=== PATIENT | female | born 1995 | race Caucasian/White ===

== ENCOUNTER 2017-06-04 10:52 | Emergency (ER) | payer BC, OTHER ==
[2017-06-04 11:06] VITALS: BP 128/83; PULSE 65; TEMP 98.6; BMI 23.1
--- NOTE | 2017-06-04 11:23 | PDOC ---
History of Present Illness - General Chief Complaint: Allergic Reaction Stated Complaint: MULTIPLE INSECT BITES TO RIGHT FOOT AND ANKLE Time Seen by Provider: 06/04/17 11:07 - History of Present Illness Initial Comments: 06/04/17 12:08 Complaint: Insect bites History of present illness: Patient was hiking in the [place], developed 3 skin lesions, 2 on the right lateral ankle, one on the dorsum of the right foot, laterally. They are red and itchy. She has been taking Tylenol and using Benadryl cream without relief. Review of systems: There've been no urticaria or other skin lesions. There has been no irritation or swelling of the throat lips or face. There has been no chest tightness or wheezing. There has been no abdominal pain nausea or vomiting. Medical history: Healthy female, no active medical or surgical problems, no medications other than those mentioned above Social/family history reviewed and noncontributory Physical exam: Alert and oriented 3, well-developed well-nourished, no acute distress, cooperative Afebrile, vital signs normal HEENT clear. Specifically, no swelling or edema of the oropharynx, lips, or face Neck supple without bruit mass or nodes Lungs clear with full breath sounds throughout bilaterally, no wheezing rales or rhonchi CV without murmur rub or gallop Abdomen soft nontender without mass or organomegaly Skin exam reveals 3 insect bites of the right lower extremity, approximately 2 cm in diameter, mild erythema and edema. Minimal point tenderness, no induration , no drainage or other sign of infection. No lymphadenopathy or lymphangitic streaking Impression: Insect bites, localized reaction, no sign of ECM Plan: Cool compresses, oral Benadryl, steroid cream, rest and elevate the leg, follow-up 2-3 days if no improvement. Instructed to return to the emergency room if the lesions become more painful, more red, more swollen, or there is fever Past History - Past Medical History Allergies/Adverse Reactions: Allergies Allergy/AdvReac Type Severity Reaction Status Date / Time No Known Allergies Allergy Verified 06/04/17 10:54 Home Medications: Ambulatory Orders Ibuprofen 600 mg PO TID #20 tablet 06/04/17 Triamcinolone 0.1% Cream [Aristocort 0.1% Cream -] 1 applic TP TID PRN #1 tube 06/04/17 Other medical history: DENIES - Immunization History Immunization Up to Date: Yes - Psycho/Social/Smoking Cessation Hx Anxiety: No Suicidal Ideation: No Smoking History: Former smoker Have you smoked in the past 12 months: No Number of Cigarettes Smoked Daily: 0 If you are a former smoker, when did you quit?: COUPLE OF YEARS AGO Information on smoking cessation initiated: No 'Breaking Loose' booklet given: 09/10/14 Hx Alcohol Use: Yes Drug/Substance Use Hx: No Substance Use Type: Alcohol *Physical Exam - Vital Signs Last Vital Signs Temp Pulse Resp BP Pulse Ox 98.6 F 65 16 128/83 100 06/04/17 10:54 06/04/17 10:54 06/04/17 10:54 06/04/17 10:54 06/04/17 10:54 *DC/Admit/Observation/Transfer Diagnosis at time of Disposition: Insect bite Qualifiers: Encounter type: initial encounter Qualified Code(s): W57.XXXA - Bitten or stung by nonvenomous insect and other nonvenomous arthropods, initial encounter - Discharge Dispostion Disposition: HOME Condition at time of disposition: Stable Admit: No - Prescriptions Prescriptions: Triamcinolone 0.1% Cream [Aristocort 0.1% Cream -] 1 applic TP TID PRN #1 tube PRN Reason: For Itching Ibuprofen 600 mg PO TID #20 tablet - Referrals Referrals: Mary Lin [Staff Physician] - 3 days - Patient Instructions Printed Discharge Instructions: DI for Insect Bites and Stings Additional Instructions: Cool compresses. Rest and elevate leg as much as possible. Medication as directed. If reaction worsens, recheck in 24-48 hours, or see tv production assistant.
== END 2017-06-04 11:36 | disposition home or self-care (01) ==
LOC: FER 10:52
DX: S90.561A Insect bite (nonvenomous), right ankle, initial encounter (principal); S90.861A Insect bite (nonvenomous), right foot, initial encounter; W57.XXXA Bitten or stung by nonvenomous insect and other nonvenomous arthropods, initial encounter; Y93.89 Activity, other specified; Y92.9 Unspecified place or not applicable; Z87.891 Personal history of nicotine dependence
CPT/HCPCS: 99281-25